=== PATIENT | male | born 1995 | race Caucasian/White ===

== ENCOUNTER → 2020-11-15 | Outpatient (CLI) | payer BC ==
[~2020-11-15] MED LIST: ZOFRAN ODT 4 MG4 MG PO
== END ==
LOC: HEART 5 11-08 15:00
DX: R00.2 Palpitations (principal)

== ENCOUNTER 2020-11-29 18:40 | Emergency (ER) | payer BC ==
[2020-11-29 19:55] LABS: HEMOGLOBIN 15.8 gm/dl (14.0-17.5); RED BLOOD COUNT 5.93 M/UL (4.20-5.50); WHITE BLOOD COUNT 5.1 K/UL (4.5-11.0)
[2020-11-29 19:57] LABS: BUN/CREATININE RATIO 7 (0-10)
[2020-11-29] MEDS ORDERED: BUSPIRONE HCL5 MG PO (22:42)
== END 2020-11-29 22:58 | disposition home or self-care (01) ==
LOC: ER1 18:40
PROVIDERS: Physician Assistant
DX: F41.9 Anxiety disorder, unspecified (principal); R07.89 Other chest pain; K21.9 Gastro-esophageal reflux disease without esophagitis; F17.220 Nicotine dependence, chewing tobacco, uncomplicated
CPT/HCPCS: 71045; 80053; 80307; 81001; 82550; 82553; 83874; 84484; 85025; 85379; 87086; 93005; 99285